=== PATIENT | female | born 1990 | race Caucasian/White ===

== ENCOUNTER 2016-05-28 11:28 | Emergency (ER) | payer OTHER ==
[~2016-05-28] VITALS: Ht 154.9 cm; Wt 82.8 kg
[2016-05-28] MEDS ORDERED: TESSALON PERLE100 MG PO (13:02)
[2016-05-28] MEDS ORDERED: PREDNISONE 20 M20 MG PO (13:02)
[2016-05-28] MEDS ORDERED: VENTOLIN HFA 1818 GM INH (13:02)
[2016-05-28 13:22] VITALS: BP 115/70
== END 2016-05-28 13:22 | disposition home or self-care (01) ==
LOC: ER 11:28
DX: J40 Bronchitis, not specified as acute or chronic (principal); J06.9 Acute upper respiratory infection, unspecified; R05 Cough; R09.89 Other specified symptoms and signs involving the circulatory and respiratory systems